=== PATIENT | female | born 1965 | race Caucasian/White ===

== ENCOUNTER 2025-02-03 06:20 | Outpatient (CLI) | payer MEDICAID ==
[2025-02-03] MEDS ORDERED: iohexol 300 MG/1 ML 50ml polymer ONE (06:34)
[2025-02-03] MEDS ORDERED: LIDOcaine 1%/PF 5ML 10 MG/ML VIAL ONE (06:34)
[2025-02-03] MEDS ORDERED: LIDOcaine 1% 30ml preserv. free vial ONE (06:35)
[2025-02-03] MEDS ORDERED: GADOTERATE MEGLUMINE 7.5 MMOL/15 ML VIAL IV ONE (06:35)
--- NOTE | 2025-02-03 08:33 | RADIOLOGY REPORT ---
C-ARM FLUOROSCOPY: PROCEDURE: Right shoulder MRI arthrogram FLUOROSCOPY TIME: 0.1 Air Kerma: 3 mgy FINDINGS: Spot intraoperative C arm radiographs demonstrating right shoulder MRI arthrogram. IMPRESSION: Please refer to surgical report for detailed findings.
--- NOTE | 2025-02-03 11:35 | RADIOLOGY REPORT ---
CLINICAL INDICATION: RIGHT SHOULDER PAIN COMPARISON: None TECHNIQUE: Multiplanar, multi-sequence MRI of the right shoulder was performed after the uneventful intra-articular administration of dilute gadolinium solution. Contrast: None INTERPRETATION: Glenohumeral joint: The joint is appropriately distended with intra-articular contrast. There is no fracture or bone marrow edema. There is a benign cyst in the humeral head. The alignment is normal. There is no focal cartilage defect. Acromioclavicular joint: The acromoclavicular joint is thickened with capsular hypertrophy. There is a type 1 acromion. Rotator cuff and bursae: There is supraspinatus tendinosis and a partial- thickness articular sided tear. infraspinatus, teres minor and subscapularis tendons are intact. There is no muscle atrophy. There is no subacromial subdeltoid bursal fluid. Biceps tendon and glenoid labrum: The biceps tendon is normal in appearance. There is joint fluid filling small defects in the anterior superior, direct superior, anterior inferior and posterior inferior labrum. IMPRESSION: 1. Supraspinatus tendinosis and partial-thickness articular surface tear. No full-thickness rotator cuff tear. 2. Multi-directional labral tear involving all segments.
== END 2025-02-03 23:59 | disposition home or self-care (01) ==
LOC: MRI 06:20
PROVIDERS: ATTEND Radiology Diagnostic Radiology
DX: S43.491A Other sprain of right shoulder joint, initial encounter (principal); M19.011 Primary osteoarthritis, right shoulder; M75.111 Incomplete rotator cuff tear or rupture of right shoulder, not specified as traumatic; M75.41 Impingement syndrome of right shoulder; M25.511 Pain in right shoulder; M54.2 Cervicalgia; M25.411 Effusion, right shoulder; I10 Essential (primary) hypertension; E11.9 Type 2 diabetes mellitus without complications; J45.909 Unspecified asthma, uncomplicated; E66.9 Obesity, unspecified; Z87.891 Personal history of nicotine dependence; Z79.899 Other long term (current) drug therapy; Z98.890 Other specified postprocedural states; Z68.41 Body mass index [BMI] 40.0-44.9, adult; X58.XXXA Exposure to other specified factors, initial encounter; Y93.89 Activity, other specified; Y92.89 Other specified places as the place of occurrence of the external cause; Y99.8 Other external cause status
CPT/HCPCS: 23350; 73222; 77002; A9575; J2003; J3490; Q9967